=== PATIENT | male | born 1950 | race Caucasian/White ===

== ENCOUNTER 2019-06-26 23:16 | Emergency (ER) | payer MEDICARE, OTHER ==
[~2019-06-26] VITALS: Ht 175.2 cm; Wt 89.5 kg
--- NOTE | 2019-06-26 23:54 | ED GI ---
General Chief Complaint: Abdominal/GI Problems Stated Complaint: ABD PAIN Nursing Triage Note: PT. REPORTED HE STARTED HAVING RIGHT FLANK PAIN ON SUNDAY, USED A HEATING PAD WHICH DID NOT HELP MUCH, THEN HE STARTED HAVING LOWER ABD PAIN AND [facility]. PT. STATED HE MAY BE CONSTIPATED BECAUSE HE HAS NOT HAD A BM SINCE SUNDAY, AND HE IS NOT PASSING GAS. PT. REPORTED HE VOMITED 2 TIMES ON SUNDAY. HE REPORTED HE MAY HAVE A BOWEL OBSTRUCTION PER THE [facility]. Sepsis Screen: No Definite Risk Source of Information: Patient History of Present Illness Date Seen by Provider: Jun 26, 2019 Time Seen by Provider: 23:53 Initial Comments 69 yo M presents with diffuse abdominal pain that started on the right side Sunday night. He had 2 episodes of vomiting with the pain on Sunday overnight. He has not had a bowel movement since Sunday. He states that he has not been passing gas. He has diffuse abdominal pain tonight feels like his belly was really tight. [facility] and they told him that he probably had a bowel obstruction and to come to the emergency department. He denies any pain with urination. He denies having pain like this in the past. The pain initially on Sunday night was just in the right flank but now has across his lower abdomen. Allergies and Home Medications Allergies Coded Allergies: No Known Drug Allergies (Unverified , 06/26/19) Home Medications Hydrocodone Bit/Acetaminophen 1 Tab Tab, 1 EACH PO Q6H PRN for PAIN-SEVERE Prescribed by: KALA LOUISE on 06/27/19208 Tamsulosin HCl 0.4 Mg Cap, 0.4 MG PO DAILY Prescribed by: KALA LOUISE on 06/27/19208 Patient Home Medication List Home Medication List Reviewed: Yes Review of Systems Review of Systems Constitutional: No chills, No fever EENTM: No Symptoms Reported Respiratory: No Symptoms Reported Cardiovascular: No Symptoms Reported Gastrointestinal: See HPI Genitourinary: Denies Burning, Denies Frequency Musculoskeletal: no symptoms reported Skin: no symptoms reported Past Njolhdi-Zolrsb-Jvflkr Hx Past Med/Social Hx: Reviewed Nursing Past Med/Soc Hx Patient Social History Recent Foreign Travel: No Contact w/Someone Who Travel: No Recent Infectious Disease Expo: No Recent Hopitalizations: No Physical Abuse: No Sexual Abuse: No Mistreated: No Fear: No Seasonal Allergies Seasonal Allergies: No Past Medical History Surgeries: Yes Coronary Stent, Eye Surgery, Vascular Surgery, Vasectomy Respiratory: No Cardiac: Yes Coronary Artery Disease, High Cholesterol Neurological: Yes TIA Genitourinary: No Gastrointestinal: No Musculoskeletal: No Endocrine: Yes Diabetes, Insulin dep Cataract Loss of Vision: Denies Hearing Impairment: Hard of Hearing Cancer: No Psychosocial: No Integumentary: No Blood Disorders: No Physical Exam Vital Signs Vital Signs - First Documented 06/26/19 23:23 Temp 36.6 Pulse 78 Resp 16 B/P (MAP) 159/83 (108) Pulse Ox 93 O2 Delivery Room Air Capillary Refill : Less Than 3 Seconds Height/Weight/BMI Height: '" Weight: lbs. oz. kg; 29.00 BMI Method: General Appearance: WD/WN, no apparent distress HEENT: PERRL/EOMI, normal ENT inspection, pharynx normal Neck: non-tender, full range of motion, supple, normal inspection Respiratory: chest non-tender, lungs clear, normal breath sounds Cardiovascular: normal peripheral pulses, regular rate, rhythm Gastrointestinal: soft, no pulsatile mass, abnormal bowel sounds (hypoactive), distended; No guarding, No rebound; tenderness (mild diffuse tenderness worse across the lower abdomen) Rectal: deferred Extremities: normal range of motion, non-tender, normal inspection, no pedal edema Back: normal inspection, no CVA tenderness Neurologic/Psychiatric: alert, normal mood/affect, oriented x 3 Skin: normal color, warm/dry Progress/Results/Core Measures Results/Orders Lab Results Laboratory Tests Test 06/27/19 00:17 06/27/19 00:37 Range/Units White Blood Count 12.9 H 4.3-11.0 10^3/uL Red Blood Count 4.85 4.35-5.85 10^6/uL Hemoglobin 14.7 13.3-17.7 G/DL Hematocrit 43 40-54 % Mean Corpuscular Volume 89 80-99 FL Mean Corpuscular Hemoglobin 30 25-34 PG Mean Corpuscular Hemoglobin Concent 34 32-36 G/DL Red Cell Distribution Width 12.5 10.0-14.5 % Platelet Count 183 130-400 10^3/uL Mean Platelet Volume 10.6 H 7.4-10.4 FL Neutrophils (%) (Auto) 65 42-75 % Lymphocytes (%) (Auto) 25 12-44 % Monocytes (%) (Auto) 8 0-12 % Eosinophils (%) (Auto) 1 0-10 % Basophils (%) (Auto) 0 0-10 % Neutrophils # (Auto) 8.3 H 1.8-7.8 X 10^3 Lymphocytes # (Auto) 3.2 1.0-4.0 X 10^3 Monocytes # (Auto) 1.1 H 0.0-1.0 X 10^3 Eosinophils # (Auto) 0.1 0.0-0.3 10^3/uL Basophils # (Auto) 0.1 0.0-0.1 10^3/uL Sodium Level 135 135-145 MMOL/L Potassium Level 3.7 3.6-5.0 MMOL/L Chloride Level 96 L 98-107 MMOL/L Carbon Dioxide Level 27 21-32 MMOL/L Anion Gap 12 5-14 MMOL/L Blood Urea Nitrogen 20 H 7-18 MG/DL Creatinine 1.44 H 0.60-1.30 MG/DL Estimat Glomerular Filtration Rate 49 BUN/Creatinine Ratio 14 Glucose Level 162 H 70-105 MG/DL Calcium Level 9.4 8.5-10.1 MG/DL Corrected Calcium 9.4 8.5-10.1 MG/DL Total Bilirubin 0.7 0.1-1.0 MG/DL Aspartate Amino Transf (AST/SGOT) 16 5-34 U/L Alanine Aminotransferase (ALT/SGPT) 30 0-55 U/L Alkaline Phosphatase 50 40-136 U/L Total Protein 7.5 6.4-8.2 GM/DL Albumin 4.0 3.2-4.5 GM/DL Lipase 25 8-78 U/L Urine Color YELLOW Urine Clarity CLEAR Urine pH 6.5 5-9 Urine Specific [place] 1.015 L 1.016-1.022 Urine Protein TRACE NEGATIVE Urine Glucose (UA) 1+ H NEGATIVE Urine Ketones NEGATIVE NEGATIVE Urine Nitrite NEGATIVE NEGATIVE Urine Bilirubin NEGATIVE NEGATIVE Urine Urobilinogen 1.0 NORMAL MG/DL Urine Leukocyte Esterase NEGATIVE NEGATIVE Urine RBC (Auto) 3+ H NEGATIVE Urine RBC 50-100 H /HPF Urine WBC 5-10 H /HPF Urine Squamous Epithelial Cells 5-10 /HPF Urine Crystals NONE /LPF Urine Bacteria NEGATIVE /HPF Urine Casts NONE /LPF Urine Mucus NEGATIVE /LPF Urine Culture Indicated NO My Orders Orders - KALA LOUISE MD Comprehensive Metabolic Panel (06/27/19 00:10) Lipase (06/27/19 00:10) Ua Culture If Indicated (06/27/19 00:10) Ed Iv/Invasive Line Start (06/27/19 00:10) Cbc With Automated Diff (06/27/19 00:10) Ct Abdomen/Pelvis W (06/27/19 00:10) Ns Iv 1000 Ml (Sodium Chloride 0.9%) (06/27/19 00:10) Ketorolac Injection (Toradol Injection) (06/27/19 00:10) Iohexol Injection (Omnipaque 350 Mg/Ml 1 (06/27/19 00:15) Received Contrast (Hold Metformin- Contr (06/27/19 00:15) Ns (Ivpb) (Sodium Chloride 0.9% Ivpb Bag (06/27/19 00:15) Tamsulosin Capsule (Flomax Capsule) (06/27/19 02:02) Rx-Hydrocodone/Apap 5-325 Mg (Rx-Vicodin (06/27/19 02:15) Medications Given in ED Current Medications Medications Dose Ordered Sig/[place] Route Start Time Stop Time Status Last Admin Dose Admin Acetaminophen/ Hydrocodone Bitart 1 ea Q6H PRN PO 06/27/19 02:15 06/27/19 02:15 1 EA Iohexol 100 ml ONCE ONCE IV 06/27/19 00:15 06/27/19 00:16 DC 06/27/19 01:00 50 ML Sodium Chloride 100 ml ONCE ONCE IV 06/27/19 00:15 06/27/19 00:16 DC 06/27/19 01:00 100 ML Vital Signs/I&O 06/26/19 23:23 Temp 36.6 Pulse 78 Resp 16 B/P (MAP) 159/83 (108) Pulse Ox 93 O2 Delivery Room Air Blood Pressure Mean: 108 Progress Progress Note #1: Progress Note Obtain labs along with CT scan of his abdomen and pelvis to evaluate for possible kidney stone versus bowel obstruction versus other pathology in his abdomen and pelvis to cause his pain. Will give IV fluids for hydration, Toradol for pain. Progress Note #2: Progress Note Labs show his white blood cell count is at the upper limits of normal at 12.9 thousand. He has mild renal insufficiency likely due to some dehydration. He has blood in his urine but no signs of infection. His CT scan finally came back showing that he had a 6 x 3 mm kidney stone in the right distal ureter. He has surrounding inflammation and increased stool and gas throughout the colon. No sign of obstruction or blockage. Counseled on results of tests seen and patient stated that he was feeling better after getting the Toradol shot treatment here in the ED. Encouraged to follow-up with Dr. Cormier with urology. Given the first dose of Flomax as well as a take h ome pack of pain medication. Counseled on treatment for constipation as well. Diagnostic Imaging Diagonstic Imaging: CT Plain Films/CT/US/NM/MRI: abdomen, pelvis Comments Moderate right hydronephrosis and hydroureter with distal ureteral 6 mm x 3.5 mm stone. There is no bowel obstruction. The appendix is normal. There is no diverticulitis. Read by radiologist Dr. Aureliano Wylie M.D. At 1:21 AM and initial results faxed at 1:31 AM Departure Impression Primary Impression: Renal colic Additional Impressions: Ureteral stone with hydronephrosis Right ureteral calculus Constipation Qualified Codes: K59.01 - Slow transit constipation Disposition: HOME, SELF-CARE Condition: Stable Departure-Patient Inst. Decision time for Depature: 02:04 Referrals: NO,LOCAL PHYSICIAN (PCP) Primary Care Physician LAYNE CORMIER MD [facility] Patient Instructions: Constipation, Adult (DC), How to Strain Your Urine, Kidney Stone Diet, Kidney Stones (DC), Renal Colic (DC) Add. Discharge Instructions: Take pain medicine as needed for severe pain. Use the Flomax to help the ureter relax and help the stone pass. Drink plenty of water and stay well hydrated to help with the constipation and the kidney stone. Call Dr. Cormier in the morning to get an appointment and follow up about the kidney stone as you may need Lithotripsy, especially if it is not passing on its own or getting worse. All discharge instructions reviewed with patient and/or family. Voiced understanding. Scripts Hydrocodone Bit/Acetaminophen (Hydrocodone/Acetaminophen 5/325mg Tablet) 1 Tab Tab 1 EACH PO Q6H PRN for PAIN-SEVERE MDD 10 for 3 Days, #12 TAB 0 Refills Prov: KALA LOUISE MD 06/27/19 Tamsulosin HCl (Flomax) 0.4 Mg Cap 0.4 MG PO DAILY for 7 Days, #7 CAP 0 Refills Prov: KALA LOUISE MD 06/27/19 KALA LOUISE MD Jun 26, 2019 23:53
[2019-06-27] MEDS ORDERED: KETOROLAC 30 MG/ML VIAL IVP STA (00:10)
[2019-06-27] MEDS ORDERED: NS IV 1000 ML 1,000 ML IV STA (00:10)
[2019-06-27] MEDS ORDERED: NS 100 ML (IVPB) BAG IV ONE (00:15)
[2019-06-27] MEDS ORDERED: IOHEXOL 350 MG/ML 100 ML (OMNIPAQUE 350) VIAL IV ONE (00:15)
[2019-06-27] MEDS ORDERED: HOLD METFORMIN - RECEIVED CONTRAST 20 ML VIAL IV SCH (00:15)
[2019-06-27 00:26] LABS: HEMOGLOBIN 14.7 G/DL (13.3-17.7); MEAN CORPUSCULAR HEMOGLOBIN 30 PG (25-34); WHITE BLOOD COUNT 12.9 10^3/uL (4.3-11.0)
[2019-06-27 00:27] LABS: BASOPHILS # (AUTO) 0.1 10^3/uL (0.0-0.1); BASOPHILS % (AUTO) 0 % (0-10); EOSINOPHILS # (AUTO) 0.1 10^3/uL (0.0-0.3); EOSINOPHILS % (AUTO) 1 % (0-10); HEMATOCRIT 43 % (40-54); LYMPHOCYTES # (AUTO) 3.2 X 10^3 (1.0-4.0); LYMPHOCYTES % (AUTO) 25 % (12-44); MEAN CORPUSCULAR HGB CONC 34 G/DL (32-36); MEAN CORPUSCULAR VOLUME 89 FL (80-99); MEAN PLATELET VOLUME 10.6 FL (7.4-10.4); MONOCYTES # (AUTO) 1.1 X 10^3 (0.0-1.0); MONOCYTES % (AUTO) 8 % (0-12); NEUTROPHILS # (AUTO) 8.3 X 10^3 (1.8-7.8); NEUTROPHILS % (AUTO) 65 % (42-75); PLATELET COUNT 183 10^3/uL (130-400); RED CELL DISTRIBUTION WIDTH 12.5 % (10.0-14.5)
[2019-06-27 00:48] LABS: BILIRUBIN,URINE NEGATIVE (NEGATIVE); CLARITY,URINE CLEAR; COLOR,URINE YELLOW; GLUCOSE, URINE (UA) 1+ (NEGATIVE); KETONES,URINE NEGATIVE (NEGATIVE); LEUKOCYTE ESTERASE ,URINE NEGATIVE (NEGATIVE); NITRITE,URINE NEGATIVE (NEGATIVE); PH,URINE 6.5 (5-9); PROTEIN,URINE TRACE (NEGATIVE)
[2019-06-27 00:49] LABS: BILIRUBIN,TOTAL 0.7 MG/DL (0.1-1.0); CALCIUM 9.4 MG/DL (8.5-10.1); CREATININE SERUM 1.44 MG/DL (0.60-1.30); POTASSIUM 3.7 MMOL/L (3.6-5.0); TOTAL PROTEIN 7.5 GM/DL (6.4-8.2)
[2019-06-27 00:53] LABS: BACTERIA,URINE NEGATIVE /HPF; RBC,URINE 50-100 /HPF
--- NOTE | 2019-06-27 01:12 | NUR ---
IV FLUIDS STILL HAD NORMAL SALINE IN THE BAG FROM EMS SO RESTARTED THE FLUIDS WITH THAT BAG IT WAS NOT DISCONNECTED.
[2019-06-27] MEDS ORDERED: TAMSULOSIN 0.4 MG (FLOMAX) CAP PO STA (02:02)
[2019-06-27] MEDS ORDERED: ACHD5005 PO (02:09)
[2019-06-27] MEDS ORDERED: TAMS0.4C98 PO (02:09)
[2019-06-27] MEDS ORDERED: RX-HYDROCODONE/APAP 5/325 MG #4 TAB PK PO PRN (02:15)
[2019-06-27 02:19] VITALS: BP 159/83
--- NOTE | 2019-06-27 06:28 | Diagnostic Imaging Report ---
PROCEDURE: CT abdomen and pelvis with contrast. TECHNIQUE: Multiple contiguous axial images were obtained through the abdomen and pelvis after administration of intravenous contrast. Auto Exposure Controls were utilized during the CT exam to meet ALARA standards for radiation dose reduction. INDICATION: Right flank pain There is mild basilar atelectasis and/or scarring. Note is also made of an approximately 0.6 cm subpleural nodule in the left lower lobe. There is low density throughout the liver indicating steatosis. There is no evidence of gallbladder distention or inflammation. No pancreatic, adrenal gland or splenic abnormality is identified. Left kidney has a normal appearance apart from an approximately 1.5 cm cortical cyst in its midportion and an approximately 2.5 cm cyst in its upper pole. There is right mild hydronephrosis and hydroureter to the level of an approximately 0.6 cm calculus in the mid to distal ureter. No bladder stone is identified. There are calcifications in the prostate gland. There is no evidence of appendiceal inflammation. A moderate amount of stool is seen in the ascending colon. There is no evidence of bowel obstruction. No organized fluid collection is seen to indicate an abscess. There is moderate aortoiliac atherosclerotic calcification. IMPRESSION: Mild to moderate right hydronephrosis and ureteric dilatation to the level of an approximately 0.6 cm mid to distal ureteric stone. Note is also made of fatty infiltration. There is an approximately 0.6 cm subpleural nodule left lung base which is of unknown significance. Correlation with clinical factors such as risk for lung cancer would be useful to determine follow-up. CT imaging of the chest may be appropriate. Dictated by: Dictated on workstation # [id number]
== END 2019-06-27 02:23 | disposition home or self-care (01) ==
LOC: ER FS 23:21
DX: N13.2 Hydronephrosis with renal and ureteral calculous obstruction (principal); K59.00 Constipation, unspecified; E11.9 Type 2 diabetes mellitus without complications; I25.10 Atherosclerotic heart disease of native coronary artery without angina pectoris; E78.00 Pure hypercholesterolemia, unspecified; Z95.5 Presence of coronary angioplasty implant and graft; Z86.73 Personal history of transient ischemic attack (TIA), and cerebral infarction without residual deficits
CPT/HCPCS: 36415; 74177; 80053; 81000; 83690; 85025

== ENCOUNTER → 2019-06-30 | Outpatient (CLI) | payer MEDICARE, OTHER ==
[~2019-06-30] MED LIST: ACHD5005 PO; ASPI-586 PO; ATOR80TA76 PO; CIPR-225 PO; CLOP75TA28 PO; GLIM4TAB3 PO; HYDR12.56 PO; MAGNESIUM PO; METF-399 PO; OMEG-141 PO; OMEP-280 PO; SEMA0.25 SQ; SILD50TA48 PO; TMSL.4C PO
== END | disposition home or self-care (01) ==
LOC: PREOP 14:02
PROVIDERS: ATTEND Urology
DX: Z01.818 Encounter for other preprocedural examination (principal)

== ENCOUNTER → 2019-06-30 | Outpatient (CLI) | payer MEDICARE, OTHER ==
[~2019-06-30] MED LIST changes: +GLIM4TAB PO; -GLIM4TAB3 PO; -OMEP-280 PO; +OMEP20CA13 PO; +TAMS0.4C98 PO; -TMSL.4C PO
--- NOTE | 2019-06-30 14:31 | Diagnostic Imaging Report ---
Indication: Right nephrolithiasis KUB 1 6. Bowel gas pattern is normal. There is some calcific atherosclerosis. There are stents in the iliac arteries. There are no pathologic masses or calcifications seen in the genitourinary tract dislocation. IMPRESSION: No acute abnormalities in the abdomen Dictated by: Dictated on workstation # [id number]
== END ==
LOC: RAD 12:38
PROVIDERS: ATTEND Urology
DX: N20.2 Calculus of kidney with calculus of ureter (principal)
CPT/HCPCS: 74018

== ENCOUNTER 2019-07-01 07:27 | Day surgery (SDC) | payer MEDICARE, OTHER ==
[~2019-07-01] VITALS: Ht 175.3 cm; Wt 89.5 kg
[2019-07-01] VITALS (11 sets, daily range): BP systolic 145–197; BP diastolic 62–98
[~2019-07-01 07:27] MED LIST changes: -ASPI-586 PO; -ATOR80TA76 PO; -CIPR-225 PO; -CLOP75TA28 PO; -GLIM4TAB PO; -HYDR12.56 PO; -MAGNESIUM PO; -METF-399 PO; -OMEG-141 PO; -OMEP20CA13 PO; -SEMA0.25 SQ; -SILD50TA48 PO
[2019-07-01] MEDS ORDERED: cefTRIAXone FOR IV USE 1,000 MG in WATER (STERILE) FOR INJECTION 10 ML IV ONE (07:45)
--- NOTE | 2019-07-01 08:04 | Progress Note-Pre Operative ---
Pre-Operative Progress Note H&P Reviewed The H&P was reviewed, patient examined and no changes noted. Date Seen by Provider: Jul 01, 2019 Time Seen by Provider: 08:04 Date H&P Reviewed: Jul 01, 2019 Time H&P Reviewed: 08:04 Pre-Operative Diagnosis: RT URETERAL STONE LAYNE CORMIER MD Jul 01, 2019 08:04
[2019-07-01 08:35] LABS: PROTHROMBIN TIME PATIENT 13.4 SEC (12.2-14.7)
[2019-07-01] MEDS: LACTATED RINGERS 1,000 ML IV PRN ×2 (08:37→11:02)
--- NOTE | 2019-07-01 08:38 | Diagnostic Imaging Report ---
EXAMINATION: Abdominal radiographs, single supine view. DATE: July 01, 2019. CLINICAL INDICATION: 69-year-old male, evaluation for electroshock wave lithotripsy. COMPARISON: KUB of June 30, 2019. CT abdomen and pelvis of June 27, 2019. COMMENTS: The previously noted 6 mm stone in the right ureter on prior CT imaging is difficult to definitely visualize radiographically. There are pelvic calcifications which likely relate to phleboliths. There are no abnormally distended gas-filled segments of bowel. There is graft material noted. IMPRESSION: The previously noted 6 mm right ureteral stone on prior CT imaging is not well seen radiographically. Dictated by: Dictated on workstation # [id number]
[2019-07-01] MEDS ORDERED: OMEP20CA13 PO (08:44)
[2019-07-01] MEDS ORDERED: SEVOFLURANE (ULTANE) 15 ML INHAL SOLN ONE ×6 (08:59→11:59)
[2019-07-01] MEDS ORDERED: MAGNESIUM PO (08:59)
[2019-07-01] MEDS ORDERED: GLIM4TAB PO (08:59)
[2019-07-01] MEDS ORDERED: ONDANSETRON 4 MG/2 ML (SDV) Z0FRAN ONE (08:59)
[2019-07-01] MEDS ORDERED: ASPI-586 PO (08:59)
[2019-07-01] MEDS ORDERED: CLOP75TA28 PO (08:59)
[2019-07-01] MEDS ORDERED: METF-399 PO (08:59)
[2019-07-01] MEDS ORDERED: proPOfol 200 MG/20 ML (DIPRIVAN) VIAL IV ONE (08:59)
[2019-07-01] MEDS ORDERED: LIDOCAINE PF 2% 5 ML (XYLOCAINE) VIAL ONE (08:59)
[2019-07-01] MEDS ORDERED: ATOR80TA76 PO (08:59)
[2019-07-01] MEDS ORDERED: DEXAMETHASONE 10 MG/ML (DECADRON) 1 ML VIAL ONE ×2 (08:59→09:10)
[2019-07-01] MEDS ORDERED: OMEG-141 PO (08:59)
[2019-07-01] MEDS ORDERED: HYDR12.56 PO (08:59)
[2019-07-01] MEDS ORDERED: fentaNYL INJECTION 100 MCG/2 ML AMP ONE (09:00)
[2019-07-01] MEDS ORDERED: SILD50TA48 PO (09:00)
[2019-07-01] MEDS ORDERED: MIDAZOLAM 2 MG/2 ML (VERSED) VIAL ONE (09:00)
[2019-07-01] MEDS ORDERED: SEMA0.25 SQ (09:00)
[2019-07-01] MEDS ORDERED: GLYCOPYRROLATE 0.2 MG/ML (ROBINUL) 2 ML VIAL ONE (10:33)
[2019-07-01] MEDS ORDERED: NEOSTIGMINE 3 MG/3 ML VIAL ONE (10:33)
[2019-07-01] MEDS ORDERED: ROCURONIUM 10 MG/ML 5 ML SYRINGE IV ONE (10:57)
[2019-07-01] MEDS ORDERED: IOPAMIDOL 61% 30 ML (ISOVUE 300) VIAL IV PRN (11:00)
--- NOTE | 2019-07-01 11:27 | Progress Note-Post Operative ---
Post-Operative Progess Note Surgeon (s)/Cook Ice Cream (s) Surgeon LAYNE CORMIER MD Cook Ice Cream: NONE Pre-Operative Diagnosis RT URETERAL STONE Post-Operative Diagnosis SAME Procedure & Operative Findings Date of Procedure 07/01/19 Procedure Performed/Findings UD, CYSTO, RT URETEROSCOPY, ATTEMPTED STENT, RT RETROGRADE UROGRAM, AND RT ESWL Anesthesia Type GENERAL Estimated Blood Loss Estimated blood loss (mL): NEGLIGIBLE Specimens/Packing Specimens Removed NONE Packing: NONE LAYNE CORMIER MD Jul 01, 2019 11:27
--- NOTE | 2019-07-01 11:31 | Discharge Inst-Urology ---
Discharge Inst-Urology Reconcile Patient Problems Problems Reviewed?: Yes Final Diagnosis RT URETERAL STONE AND URETHRAL STRICTURE Patient Instructions/Follow Up Plan/Assessment/Instructions Please make appointment to been seen in office in 3 weeks. KUB prior to it Send home with Ybarra and leg bag with instructions To office 9am to DC Ybarra KUB on way home Post ESWL instructions Increase oral fluids for 48 hours and then as needed. Diet and Activity as tolerated. If questions or concerns contact your physician Or seek help at emergency department. LAYNE CORMIER MD Jul 01, 2019 11:31
--- NOTE | 2019-07-01 11:35 | Discharge Inst-Urology ---
Discharge Inst-Urology Reconcile Patient Problems Problems Reviewed?: Yes Final Diagnosis RT URETERAL STONE Patient Instructions/Follow Up Plan/Assessment/Instructions Please make appointment to been seen in office next Sunday, NOT 3 weeks. KUB prior to it. Stay off ASA and Plavix till then KUB on way home Post ESWL instructions Discharge with Ybarra and leg bag with instructions Come to office This 9am to DC Ybarra Increase oral fluids for 48 hours and then as needed. Diet and Activity as tolerated. If questions or concerns contact your physician Or seek help at emergency department. LAYNE CORMIER MD Jul 01, 2019 11:35
[2019-07-01] MEDS ORDERED: KETOROLAC 30 MG/ML VIAL ONE (11:59)
[2019-07-01] MEDS ORDERED: FUROSEMIDE 40 MG/4 ML INJ (LASIX) ONE (11:59)
[2019-07-01] MEDS ORDERED: morphine INJ 10 MG/ML 1ML (SYR OR VIAL) IVP ONE (12:00)
[2019-07-01] MEDS ORDERED: ONDANSETRON 4 MG/2 ML (SDV) Z0FRAN IVP PRN (12:00)
--- NOTE | 2019-07-01 12:45 | NUR ---
TO AMB SURG FROM PAR PER CART. ALERT, REPORTS PENILE PRESSURE FROM CATHETER. SCANT AMOUNT OF BLEEDING AT MEATUS. URINE CLEAR, LIGHT YELLOW. CATHETER TUBING TAPED TO RIGHT THIGH. REPLACED TAPE WITH CATHETER STATLOCK. BAG TO DD ON BOTTOM BED RAIL. PO FLUIDS PROVIDED.
--- NOTE | 2019-07-01 13:08 | Anesthesia-General Post-Op ---
General Patient Condition Mental Status/LOC: Same as Preop Cardiovascular: Satisfactory Nausea/Vomiting: Absent Respiratory: Satisfactory Pain: Controlled Complications: Absent Post Op Complications Complications None Follow Up Care/Instructions Patient Instructions None needed. Anesthesia/Patient Condition Patient Condition Patient is doing well, no complaints, stable vital signs, no apparent adverse anesthesia problems. No complications reported per nursing. TYLER ISAAC CRNA Jul 01, 2019 13:08
[2019-07-01] MEDS ORDERED: CIPR-225 PO (13:19)
[2019-07-01] MEDS ORDERED: ACHD5005 PO (13:19)
[2019-07-01] MEDS ORDERED: TAMS0.4C98 PO (13:19)
--- NOTE | 2019-07-01 13:30 | NUR ---
TAKING PO FLUIDS WITHOUT PROBLEM. NO CHANGE IN SITE, URINE OR PAIN ASSESSMENTS.
--- NOTE | 2019-07-01 14:19 | Diagnostic Imaging Report ---
PATIENT HISTORY: POST OP. TECHNIQUE: Frontal view of the abdomen. COMPARISON: 07/01/2019 FINDINGS: Moderate stool seen in the ascending colon. There is mild gas seen in the distal colon and rectum. No dilated loops of small bowel are seen. There is no large collection of free air. Iliac stents are noted. No unexpected radiopaque foreign bodies are seen. There is calcific atherosclerosis. The previously seen right ureteral stone is not well seen radiographically. IMPRESSION: 1. The previously seen right ureteral stone is not well seen radiographically. No acute abnormality is seen. Dictated by: Dictated on workstation # [id number]
--- NOTE | 2019-07-01 14:45 | NUR ---
NO CHANGE IN ASSESSMENTS. MARADIAGA CATH/LEG BAG TEACHING TO PT AND , SUPPLIES SENT WITH PT FOR CATHETER CARE AND URINE STRAINING. REQUESTING DISMISSAL.
--- NOTE | 2019-07-01 18:28 | OPERATIVE REPORT ---
DATE OF SERVICE: 07/01/2019 PREOPERATIVE DIAGNOSIS: Right ureteral stone. POSTOPERATIVE DIAGNOSES: Right ureteral stone and submeatal stricture. OPERATIONS PERFORMED: Urethral dilatation, cystoscopy, right ureteroscopy, attempted stent, right retrograde urogram and right ESWL. SURGEON: Joce Cormier MD ANESTHESIA: General. COMPLICATIONS: None. DESCRIPTION OF PROCEDURE: Under satisfactory general anesthesia, the patient in lithotomy position on the cystoscopy table, the genital area were prepped and draped in the usual sterile fashion. Attempt to pass a 23-English met severe resistance at the site of the meatus secondary to a severe stricture. I was able to dilate it to #28 to accommodate a 23-English cystoscope easily. The rest of the urethra showed no stricture. The prostate was not significantly enlarged. There was no bladder neck obstruction. Bladder was entered, revealed mild trabeculations. Ureteric orifices were normal in shape, size and configuration with clear efflux, sluggish on the right side. Using the foroblique lens, I tried to dilate the right ureteral orifice, intramural portion met resistance. I injected contrast and indeed there was a quite curve to the end of the ureter as it coursed into the bladder. I tried to manipulate the stent through that, I could not. I passed a 6.9-English semi-rigid ureteroscope after removing the cystoscope and again I could not manipulate it beyond that curve to get to the stone, I could see the stone as a filling defect in injecting retrograde urogram, so we localized it well. I removed the ureteroscope and inserted an 18-English Ybarra catheter because of the dilatation and the length of the surgery, probably leave that catheter in for 48 hours. We moved the patient to the ESWL table in supine. The stone as seen by the filling defect was localized. Shocks were delivered at kV of 8 for a total of 2500 shocks. We could not visualize the filling defect anymore and the contrast was flowing easily and could not be visualized in the ureter anymore. The patient received 40 mg of Lasix and 30 mg of Toradol IV at the end of the procedure. He tolerated the procedure and anesthesia well and was sent to recovery room in stable condition. Job ID: [id number] DocumentID: [id number] Dictated Date: 07/01/2019 11:46:05 Molding Machine Operator Date: 07/01/2019 18:27:56 Dictated By: JOCE CORMIER MD
== END 2019-07-01 14:57 | disposition home or self-care (01) ==
LOC: SDC 07:27
PROVIDERS: ATTEND Urology
DX: N20.1 Calculus of ureter (principal); N35.911 Unspecified urethral stricture, male, meatal; I25.10 Atherosclerotic heart disease of native coronary artery without angina pectoris; I73.9 Peripheral vascular disease, unspecified; I10 Essential (primary) hypertension; K21.9 Gastro-esophageal reflux disease without esophagitis; E11.9 Type 2 diabetes mellitus without complications; Z79.82 Long term (current) use of aspirin; Z79.899 Other long term (current) drug therapy; Z95.5 Presence of coronary angioplasty implant and graft; Z86.73 Personal history of transient ischemic attack (TIA), and cerebral infarction without residual deficits; Z98.52 Vasectomy status
CPT/HCPCS: 36415; 74018; 82962; 85610; 85730; 87081

== ENCOUNTER → 2019-07-07 | Outpatient (CLI) | payer MEDICARE, OTHER ==
[~2019-07-07] MED LIST changes: +ASPI-586 PO; +ATOR80TA76 PO; +CIPR-225 PO; +CLOP75TA28 PO; +GLIM4TAB PO; +HYDR12.56 PO; +MAGNESIUM PO; +METF-399 PO; +OMEG-141 PO; +OMEP20CA13 PO; +SEMA0.25 SQ; +SILD50TA48 PO
--- NOTE | 2019-07-07 16:13 | Diagnostic Imaging Report ---
INDICATION: Stone follow up status post ESWL. COMPARISON: 06/30/2019 FINDINGS: Single supine radiographic view of the abdomen was obtained. Calcific atherosclerosis of the pelvis is again noted. No unexpected extraosseous calcifications or radiopaque foreign bodies are seen on today's exam. Distal right ureteral calculus is not identified. No unexpected radiopaque foreign bodies are seen. Small bowel loops are nondistended. Moderate air and stool is again noted scattered throughout the colon. IMPRESSION: 1. No unexpected calcifications are seen on today's exam. If there is persistent concern for retained urinary collecting system calculus, CT is advised. Dictated by: Dictated on workstation # [id number]
== END ==
LOC: RAD 12:19
PROVIDERS: ATTEND Urology
DX: N20.1 Calculus of ureter (principal); Z98.890 Other specified postprocedural states
CPT/HCPCS: 74018

== ENCOUNTER → 2020-04-29 | Outpatient (CLI) | payer MEDICARE, OTHER ==
[~2020-04-29] MED LIST changes: -GLIM4TAB PO; +GLIM4TAB5 PO; -OMEP20CA13 PO; +OMEP20CA18 PO; -TAMS0.4C98 PO; +TMSL.4C PO
--- NOTE | 2020-04-29 10:42 | Diagnostic Imaging Report ---
PROCEDURE: US carotid duplex, bilateral. TECHNIQUE: Multiple real-time grayscale images were obtained over the carotid arteries in various projections, bilaterally. Additional spectral analysis and color Doppler duplex images were also obtained. INDICATION: Peripheral vascular disease There is moderate narrowing of the proximal right internal carotid artery with velocity ratios suggesting stenosis between 50 and 60%. Parameters based on the consensus panel Marcelino-Scale and Doppler ultrasound criteria published July 2003, Radiology, Volume 229. DOPPLER (peak systolic velocity M/S Right Left approximately 60%. Both carotid bifurcations is not having significant change of velocities or waveforms. Both vertebral arteries are patent with antegrade flow. IMPRESSION: There is atherosclerotic change of the carotid bifurcations. There is approximate 60% stenosis of the proximal right internal carotid artery. CCA 0.80 1.07 ICA Proximal 2.10 0.93 ICA Mid 1.25 1.07 ICA Distal 0.99 1.10 RATIO 2.62 1.03 ECA 0.95 0.97 VERT 0.39 0.56 Dictated by: Dictated on workstation # [id number]
--- NOTE | 2020-04-29 11:05 | Diagnostic Imaging Report ---
PROCEDURE: MR imaging of the brain without contrast. TECHNIQUE: Multiplanar, multisequence MR imaging of the brain was performed without contrast. INDICATION: Dizziness and disequilibrium. FINDINGS: Ventricles and sulci are within normal limits for size. There is a small focus of increased T2 signal to the right of midline in the saritha. This may represent area of chronic ischemia or gliosis from other etiology. There is no restricted diffusion seen to indicate an acute infarct. There is no abnormal mass effect or shift of midline structures. Expected flow voids at the level of [place] are present. There is no abnormal mass effect or shift of midline structures. There is mural thickening within maxillary sinuses and ethmoid air cells, bilaterally. Inner ear structures are unremarkable. Mastoid air cells appear to be clear. IMPRESSION: Minimal abnormal signal within the right saritha may be due to chronic ischemia. Otherwise, no acute abnormality is identified. Dictated by: Dictated on workstation # [id number]
== END ==
LOC: RAD 08:57
PROVIDERS: ATTEND Nurse Practitioner
DX: I65.23 Occlusion and stenosis of bilateral carotid arteries (principal); E87.8 Other disorders of electrolyte and fluid balance, not elsewhere classified; I73.9 Peripheral vascular disease, unspecified
CPT/HCPCS: 70551; 93880

== ENCOUNTER 2020-12-04 14:24 | Emergency (ER) | payer MEDICARE, OTHER ==
[~2020-12-04] VITALS: Ht 175 cm; Wt 84.0 kg
[2020-12-04] MEDS ORDERED: NS IV 1000 ML 1,000 ML ONE (14:51)
[2020-12-04] MEDS ORDERED: RT-ALBUTEROL INHALER HFA (VENTOLIN HFA) 18 GM IH ONE (14:52)
[2020-12-04] MEDS ORDERED: NS IV 1000 ML 1,000 ML IV STA (14:58)
[2020-12-04] MEDS ORDERED: RT-ALBUTEROL INHALER HFA (VENTOLIN HFA) 18 GM IH STA (14:58)
--- NOTE | 2020-12-04 15:07 | ED General ---
General Chief Complaint: Cough/Cold/Flu Symptoms Stated Complaint: COVID + Nursing Triage Note: PT OUT OF CAR W STAFF, PT HAS TESTED COVID+ ON 12/03. PT HAS BEEN SICK SINCE 11/26. PT STATES O2 SAT 85% LAST PM, PT DENIES FEVERS, DENIES DIARRHEA. PT STATES HAS CHEST PRESSURE IN CENTER OF CHEST, COUGH AND SOA Nursing Sepsis Screen: No Definite Risk Source of Information: Patient Exam Limitations: No Limitations History of Present Illness Date Seen by Provider: Dec 04, 2020 Time Seen by Provider: 14:43 Initial Comments Here with report of being Covid positive with test from yesterday. Has been sick over the last week since the and noticed increasing shortness of air with decreasing O2 sat last night. No recent fevers but has had chest pressure with cough that is sometimes tightness and sometimes chest pain. Does have history of cardiac disease as well as diabetes and is on Plavix every other day and aspirin every other day. Denies nausea or vomiting but reports increasingly weak and tired. Timing/Duration: 1 Week Severity: Moderate Associated Systoms: Chest Pain, Cough; No Nausea/Vomiting; Shortness of Air, Weakness Allergies and Home Medications Allergies Coded Allergies: No Known Drug Allergies (Unverified , 06/26/19) Home Medications Atorvastatin Calcium 80 Mg Tablet, 80 MG PO DAILY, (Reported) TAKES 1/2 TAB DAILY FOR 40 MG DOSE Ciprofloxacin HCl 500 Mg Tablet, 500 MG PO BID Prescribed by: CLAUDIO LOBO on 07/01/19 1319 Glimepiride 4 Mg Tablet, 4 MG PO DAILY, (Reported) Hydrochlorothiazide 12.5 Mg Tablet, 12.5 MG PO DAILY, (Reported) Hydrocodone Bit/Acetaminophen 1 Tab Tab, 1-2 TAB PO Q4H PRN for PAIN-SEVERE Prescribed by: CLAUDIO LOBO on 07/01/19 1319 Metformin HCl 1,000 Mg Tablet, 1,000 MG PO BID, (Reported) [place]-3/Dha/Epa/Fish Oil 1 Each Capsule, 1 EACH PO DAILY, (Reported) Omeprazole 20 Mg Capsule.dr, 20 MG PO DAILY, (Reported) Semaglutide 0.25 Mg/0.2 Ml Pen.injctr, 0.25 MG SQ WEEK, (Reported) Sildenafil Citrate 50 Mg Tablet, 50 MG PO UD, (Reported) Tamsulosin HCl 0.4 Mg Cap, 0.4 MG PO DAILY Prescribed by: CLAUDIO LOBO on 07/01/19 1319 [Magnesium] Unknown Strength , Unknown Dose PO DAILY, (Reported) Patient Home Medication List Home Medication List Reviewed: Yes Review of Systems Review of Systems Constitutional: see HPI; No chills, No fever; malaise, weakness EENTM: nose congestion, throat pain Respiratory: cough, short of breath Cardiovascular: chest pain; No edema Gastrointestinal: No abdominal pain, No nausea, No vomiting Genitourinary: no symptoms reported Musculoskeletal: No muscle pain; muscle weakness Skin: no symptoms reported Psychiatric/Neurological: See HPI All Other Systems Reviewed Negative Unless Noted: Yes Past Nhpvfmv-Vjvckb-Znnwth Hx Past Med/Social Hx: Reviewed Nursing Past Med/Soc Hx Patient Social History Alcohol Use: Denies Use Smoking Status: Former Smoker Former Smoker, Quit: Sep 10, 1998 Recent Infectious Disease Expo: No Recent Hopitalizations: No Immunizations Up To Date Date of Pneumonia Vaccine: May 11, 2017 Seasonal Allergies Seasonal Allergies: No Past Medical History Surgeries: Yes (FACIAL SKIN CA REMOVED, RIGHT CAROTID ENDARTERECTOMY ) Coronary Stent, Eye Surgery, Vascular Surgery, Vasectomy Respiratory: No Cardiac: Yes (CARDIAC STENT 2003) Coronary Artery Disease, High Cholesterol, Peripheral Vascular Neurological: Yes (LAST TIA 2003) TIA Genitourinary: No (ED) Gastrointestinal: No Musculoskeletal: No Endocrine: Yes Diabetes, Non-Insulin dep HEENT: Yes Cataract Loss of Vision: Denies Hearing Impairment: Hard of Hearing Cancer: No Skin Did You Recieve Any Treatments: Yes What Type of Treatment Did You: Surgical Intervention Psychosocial: No Integumentary: Yes (FACIAL SKIN CA REMOVED RIGHT UPPER FOREHEAD) Blood Disorders: No Family Medical History Reviewed Nursing Family Hx No Pertinent Family Hx Physical Exam-Suspected Sepsis Physical Exam Vital Signs Vital Signs - First Documented 12/04/20 14:30 Temp 37.0 Pulse 85 Resp 24 B/P (MAP) 146/80 (102) Pulse Ox 94 O2 Delivery Room Air Capillary Refill : Less Than 3 Seconds Blood Pressure Mean: 102 Height, Weight, BMI Height: '" Weight: lbs. oz. kg; 27.00 BMI Method: General Appearance: No Apparent Distress, WD/WN HEENT: PERRL/EOMI, Pharynx Normal Neck: Non Tender, Supple Respiratory: No Accessory Muscle Use, No Respiratory Distress, Crackles (Bibasilar) Cardiovascular: Regular Rate, Rhythm, No Murmur Gastrointestinal: Non Tender, Soft Back: Normal Inspection, No CVA Tenderness, No Vertebral Tenderness Extremity: Normal Range of Motion, Non Tender Neurologic/Psychiatric: Alert, Oriented x3 Skin: normal color, warm/dry Focused Exam Lactate Level 12/04/20 15:09: Lactic Acid Level 1.30 Lactic Acid Level Laboratory Tests Test 12/04/20 15:09 Lactic Acid Level 1.30 MMOL/L (0.50-2.00) Progress/Results/Core Measures Suspected Sepsis Recent Fever Within 48 Hours: No Infection Criteria Present: Documented Infection New/Unexplained Altered Menta: No Sepsis Screen: No Definite Risk SIRS Temperature: Pulse: 85 Respiratory Rate: 24 Laboratory Tests 12/04/20 15:00: White Blood Count 5.4 Blood Pressure 146 /80 Mean: 102 12/04/20 15:09: Lactic Acid Level 1.30 Laboratory Tests 12/04/20 15:00: Creatinine 0.84, INR Comment 1.0, Platelet Count 128L, Total Bilirubin 0.4 Results/Orders Lab Results Laboratory Tests Test 12/04/20 15:00 12/04/20 15:09 Range/Units White Blood Count 5.4 4.3-11.0 10^3/uL Red Blood Count 4.63 4.30-5.52 10^6/uL Hemoglobin 13.9 13.3-17.7 g/dL Hematocrit 41 40-54 % Mean Corpuscular Volume 88 80-99 fL Mean Corpuscular Hemoglobin 30 25-34 pg Mean Corpuscular Hemoglobin Concent 34 32-36 g/dL Red Cell Distribution Width 12.6 10.0-14.5 % Platelet Count 128 L 130-400 10^3/uL Mean Platelet Volume 10.5 9.0-12.2 fL Immature Granulocyte % (Auto) 0 % Neutrophils (%) (Auto) 61 42-75 % Lymphocytes (%) (Auto) 28 12-44 % Monocytes (%) (Auto) 10 0-12 % Eosinophils (%) (Auto) 0 0-10 % Basophils (%) (Auto) 0 0-10 % Neutrophils # (Auto) 3.3 1.8-7.8 X 10^3 Lymphocytes # (Auto) 1.5 1.0-4.0 X 10^3 Monocytes # (Auto) 0.5 0.0-1.0 X 10^3 Eosinophils # (Auto) 0.0 0.0-0.3 10^3/uL Basophils # (Auto) 0.0 0.0-0.1 10^3/uL Immature Granulocyte # (Auto) 0.0 0.0-0.1 10^3/uL Prothrombin Time 13.1 12.2-14.7 SEC INR Comment 1.0 0.8-1.4 Activated Partial Thromboplast Time 29 24-35 SEC D-Dimer 0.66 H 0.00-0.49 UG/ML Sodium Level 136 135-145 MMOL/L Potassium Level 4.5 3.6-5.0 MMOL/L Chloride Level 102 98-107 MMOL/L Carbon Dioxide Level 21 21-32 MMOL/L Anion Gap 13 5-14 MMOL/L Blood Urea Nitrogen 14 7-18 MG/DL Creatinine 0.84 0.60-1.30 MG/DL Estimat Glomerular Filtration Rate > 60 BUN/Creatinine Ratio 17 Glucose Level 154 H 70-105 MG/DL Calcium Level 8.7 8.5-10.1 MG/DL Corrected Calcium 8.9 8.5-10.1 MG/DL Total Bilirubin 0.4 0.1-1.0 MG/DL Aspartate Amino Transf (AST/SGOT) 23 5-34 U/L Alanine Aminotransferase (ALT/SGPT) 27 0-55 U/L Alkaline Phosphatase 48 40-136 U/L Troponin I < 0.028 <0.028 NG/ML C-Reactive Protein High Sensitivity 3.22 H 0.00-0.50 MG/DL Total Protein 6.9 6.4-8.2 GM/DL Albumin 3.8 3.2-4.5 GM/DL Procalcitonin 0.03 <0.10 NG/ML Lactic Acid Level 1.30 0.50-2.00 MMOL/L My Orders Orders - REGIS POSEY MD Ns Iv 1000 Ml (Sodium Chloride 0.9%) (12/04/20 14:51) Albuterol Inhaler (Ventolin Hfa) (12/04/20 14:52) Cbc With Automated Diff (12/04/20 14:58) Comprehensive Metabolic Panel (12/04/20 14:58) Blood Culture (12/04/20 14:58) Sputum Culture (12/04/20 14:58) Urinalysis (12/04/20 14:58) Urine Culture (12/04/20 14:58) Protime With Inr (12/04/20 14:58) Partial Thromboplastin Time (12/04/20 14:58) Chest 1 View, Ap/Pa Only (12/04/20 14:58) Ed Iv/Invasive Line Start (12/04/20 14:58) Vital Signs Adult Sepsis Patie Q15M (12/04/20 14:58) O2 (12/04/20 14:58) Remove Rings In Anticipation O (12/04/20 14:58) Lactic Acid Analyzer (12/04/20 14:58) Ekg Tracing (12/04/20 14:58) Hs C Reactive Protein (12/04/20 14:58) Fibrin Degradation Products (12/04/20 14:58) Procalcitonin (Pct) (12/04/20 14:58) Troponin I (12/04/20 14:58) Ns Iv 1000 Ml (Sodium Chloride 0.9%) (12/04/20 14:58) Albuterol Inhaler (Ventolin Hfa) (12/04/20 14:58) Vital Signs/I&O 12/04/20 14:30 Temp 37.0 Pulse 85 Resp 24 B/P (MAP) 146/80 (102) Pulse Ox 94 O2 Delivery Room Air Capillary Refill : Less Than 3 Seconds Blood Pressure Mean: 102 Progress Note : Progress Note Seen and evaluated. IV, labs, UA, chest x-ray, blood cultures and lactic acid ordered. O2 sat mid 90s on room air currently. Patient states that he is still short of breath. We will check EKG and troponin as well as D-dimer. Albuterol MDI via spacer given. Normal saline 1 L bolus. Monitor patient. Patient is at day 8 or 9 currently. 1651: Patient's chest x-ray is okay. He is actually doing better after albuterol. Patient is still in standard for bamlinivimab therapy. This is currently not available here. Patient is going to be discharged home. I did discuss the case with Dr. Dodge and she is approved the therapy for [facility]. We did call and make contact with [facility] and they have an opening at 1030 tomorrow morning. He would still be inside standards at that point to receive the infusion. I did discuss the risk and benefits with the patient and he verbalized understanding and agreement and will take the therapy. I did discuss this with his as well. She will make sure that he is there tomorrow. Order sheet sent with the patient. I did also instruct the to get tested and follow-up as well as she could potentially qualify. Discharged home with return precautions. Patient verbalized understanding of instructions and agreement with plan. ECG Initial ECG Impression Date: Dec 04, 2020 Initial ECG Impression Time: 15:16 Initial ECG Rate: 81 Initial ECG Rhythm: Normal Sinus Comment EnteredSinus rhythm with incomplete right bundle branch block and left anterior fascicular block. Left axis deviation. No evidence of ST elevation GA. No previous available for comparison. Read by me. Diagnostic Imaging Diagonstic Imaging: Xray Plain Films/CT/US/NM/MRI: chest Comments [facility], [place] NAME: CONNIE [facility]BORNE [facility] REC#: [id number] PT STATUS: REG ER : 1950 PHYSICIAN: REGIS POSEY MD ADMIT DATE: 12/04/20/ER Signed Date of Exam:12/04/20 CHEST 1 VIEW, AP/PA ONLY INDICATION: Sepsis and shortness of air. FINDINGS: Frontal view of the chest demonstrates the lungs to be clear. The heart, mediastinum, pulmonary vascularity and visualized bony thorax are normal. IMPRESSION: Normal chest. Dictated by: Dictated on workstation # [id number] Dict: 12/04/20 1539 Trans: 12/04/20 1550 [facility] [id number] Interpreted by: CHRIS NAIDU MD Electronically signed by: CHRIS NAIDU MD 12/04/20 1550 Departure Impression Primary Impression: COVID-19 virus infection Disposition: 01 HOME, SELF-CARE Condition: Stable Departure-Patient Inst. Decision time for Depature: 16:54 Referrals: NO,LOCAL PHYSICIAN (PCP/Family) Primary Care Physician Patient Instructions: Coronavirus Disease 2019 (COVID-19) ED Add. Discharge Instructions: All discharge instructions reviewed with patient and/or family. Voiced under standing. Use albuterol inhaler 2 puffs every 4-6 hours as needed for shortness of air. Drink plenty of fluids. You may take Tylenol/acetaminophen 1000 mg every 6-8 hours as needed for fever or pain. It is very important that you follow-up at [facility] tomorrow morning at 10:30 AM for the monoclonal antibody infusion therapy to prevent severe disease of COVID-19. Take the order set that was given with you to the hospital when you check into the emergency room. Return for worse pain, fever, vomiting, weakness, breathing problems or other concerns as needed. Monitor your oxygen saturations and return if they are per sistently below 90% after resting for a few minutes. REGIS POSEY MD Dec 04, 2020 15:07
[2020-12-04 15:18] LABS: BASOPHILS % (AUTO) 0 % (0-10); EOSINOPHILS % (AUTO) 0 % (0-10); HEMATOCRIT 41 % (40-54); HEMOGLOBIN 13.9 g/dL (13.3-17.7); LYMPHOCYTES # (AUTO) 1.5 X 10^3 (1.0-4.0); LYMPHOCYTES % (AUTO) 28 % (12-44); MEAN CORPUSCULAR HEMOGLOBIN 30 pg (25-34); MEAN CORPUSCULAR HGB CONC 34 g/dL (32-36); MEAN CORPUSCULAR VOLUME 88 fL (80-99); MEAN PLATELET VOLUME 10.5 fL (9.0-12.2); MONOCYTES # (AUTO) 0.5 X 10^3 (0.0-1.0); MONOCYTES % (AUTO) 10 % (0-12); NEUTROPHILS # (AUTO) 3.3 X 10^3 (1.8-7.8); NEUTROPHILS % (AUTO) 61 % (42-75); PLATELET COUNT 128 10^3/uL (130-400); WHITE BLOOD COUNT 5.4 10^3/uL (4.3-11.0)
[2020-12-04 15:30] LABS: ALBUMIN 3.8 GM/DL (3.2-4.5); CHLORIDE 102 MMOL/L (98-107); POTASSIUM 4.5 MMOL/L (3.6-5.0); SODIUM 136 MMOL/L (135-145)
[2020-12-04 15:31] LABS: CALCIUM 8.7 MG/DL (8.5-10.1)
[2020-12-04 15:32] LABS: GLUCOSE 154 MG/DL (70-105); TOTAL PROTEIN 6.9 GM/DL (6.4-8.2)
[2020-12-04 15:34] LABS: BILIRUBIN,TOTAL 0.4 MG/DL (0.1-1.0); CARBON DIOXIDE 21 MMOL/L (21-32); FIBRIN DEGRADATION PRODUCTS 0.66 UG/ML (0.00-0.49); PROTHROMBIN TIME PATIENT 13.1 SEC (12.2-14.7)
[2020-12-04 15:36] LABS: ALKALINE PHOSPHATASE 48 U/L (40-136); CREATININE SERUM 0.84 MG/DL (0.60-1.30); GFR ESTIMATED > 60
[2020-12-04 15:37] LABS: BUN/CREATININE RATIO 17
[2020-12-04 15:39] LABS: ALANINE AMINOTRANSFERASE 27 U/L (0-55)
--- NOTE | 2020-12-04 15:42 | Diagnostic Imaging Report ---
INDICATION: Sepsis and shortness of air. FINDINGS: Frontal view of the chest demonstrates the lungs to be clear. The heart, mediastinum, pulmonary vascularity and visualized bony thorax are normal. IMPRESSION: Normal chest. Dictated by: Dictated on workstation # [id number]
[2020-12-04 17:11] VITALS: BP 147/73
== END 2020-12-04 17:13 | disposition home or self-care (01) ==
LOC: EDUNIT# 14:24 → ER 14:26
DX: U07.1 COVID-19 (principal); I10 Essential (primary) hypertension; E78.00 Pure hypercholesterolemia, unspecified; E11.9 Type 2 diabetes mellitus without complications; Z85.828 Personal history of other malignant neoplasm of skin; Z95.5 Presence of coronary angioplasty implant and graft; Z86.73 Personal history of transient ischemic attack (TIA), and cerebral infarction without residual deficits; Z87.891 Personal history of nicotine dependence; Z79.84 Long term (current) use of oral hypoglycemic drugs
CPT/HCPCS: 36415; 71045; 80053; 83605; 84145; 84484; 85025; 85379; 85610; 85730; 86141; 87040

== ENCOUNTER 2022-05-17 20:34 | Outpatient (CLI) | payer OTHER | END 2022-05-18 06:44 | disposition home or self-care (01) | LOC: SLEEP 20:34 | PROVIDERS: ATTEND Nurse Practitioner | DX: G47.9 Sleep disorder, unspecified (principal); I10 Essential (primary) hypertension | CPT/HCPCS: 95810 ==

== ENCOUNTER → 2022-07-13 | Outpatient (CLI) | payer OTHER ==
--- NOTE | 2022-07-13 09:45 | Diagnostic Imaging Report ---
PROCEDURE: US carotid duplex, bilateral. TECHNIQUE: Multiple real-time grayscale images were obtained over the carotid arteries in various projections, bilaterally. Additional spectral analysis and color Doppler duplex images were also obtained. INDICATION: Carotid stenosis COMPARISON: 04/29/2020 FINDINGS: [id number] plaque is identified within the bilateral carotid arterial systems. Peak systolic velocities within the right common carotid artery within normal limits. However, peak systolic velocity within the right internal carotid artery proximally is elevated at 220 cm/s. This is associated with a right internal carotid artery to common cardiac artery ratio of 2.2. The peak systolic velocity within the right external carotid artery is within normal limits. Peak systolic velocities within and throughout the left common carotid artery are mildly elevated, measuring up to 152 cm/s. Additionally, the peak systolic velocities within the cxy-ke-[id number] left internal carotid artery are elevated at up to 146 cm/s. However, the left internal carotid artery to common carotid ratio is within normal limits. Peak systolic velocity within the left external carotid artery is mildly elevated at 138 cm/s, though this does not double the velocity within the left common carotid artery. Antegrade flow within the bilateral vertebral arteries. IMPRESSION: 60-79% stenosis within the proximal right internal carotid artery. Diffusely increased velocities throughout the left carotid arterial system without focal sonographic stenosis. Additionally, based upon velocities and ratios, no focal hemodynamically significant stenosis. Antegrade flow within the bilateral vertebral arteries. Parameters based on the consensus panel Marcelino-Scale and Doppler ultrasound criteria published July 2003, Radiology, Volume 229. DOPPLER (peak systolic velocity M/S Right Left CCA .99 1.20 ICA Proximal 2.20 1.13 ICA Mid 1.10 1.46 ICA Distal 1.30 1.35 RATIO 2.20 1.21 ECA 1.07 1.38 VERT .72 .58 Dictated by: Dictated on workstation # [id number]
== END ==
LOC: RAD FS 07:37
PROVIDERS: ATTEND Nurse Practitioner
DX: Z01.89 Encounter for other specified special examinations (principal); I65.23 Occlusion and stenosis of bilateral carotid arteries
CPT/HCPCS: 93880

== ENCOUNTER 2022-09-06 09:22 | Emergency (ER) | payer MEDICARE, OTHER ==
[~2022-09-06] VITALS: Ht 175 cm; Wt 86.0 kg
--- NOTE | 2022-09-06 09:49 | ED Respiratory ---
General Chief Complaint: Respiratory Problems Stated Complaint: COUGH | OXY LEVEL LOW Nursing Triage Note: PT AMB TO RM 7 WITH SPOUSE WITH C/O COUGH X1 MONTH AND SENT HERE BY [facility] FOR POSS PE. PT ALSO HAD CXR AT [facility] Source: patient, family History of Present Illness Date Seen by Provider: Sep 06, 2022 Time Seen by Provider: 09:37 Initial Comments Patient is a 72-year-old male history of coronary artery disease who presents to the emergency room by private vehicle from [facility] in [facility] chief complaint persistent cough, shortness of breath over the last month. He was seen at a clinic in [place] within the last month and prescribed a cough medication has not been helping. He went to the clinic this morning and was found to have low oxygen saturations on room air at 88 or 89%. He states he is short of breath with some exertion. He is a remote smoker having quit 30 years ago. He does not use inhalers routinely. He states his cough is dry, he denies hemoptysis. No recent problems with bowel or bladder, no black or bloody stools no vomiting. No fevers or chills. No actual chest pain. He recently had cardiac evaluation in [place] with Dr. Herbert at [facility]. He denies any recent prolonged immobility, surgeries, illnesses that left him immobile, travel. No history of blood clot. He alternates aspirin and Plavix every other day. He did not take his medications this morning. He did have a chest x-ray at [facility] this morning. Current room air saturations 90 to 92%. No increased work of breathing or respiratory distress is noted. The patient has no conversational dyspnea. All other review of systems reviewed and negative except as stated. Timing/Duration: other (1 month) Severity: moderate Modifying Factors: Worse With Activity; Improves With Albuterol Inhaler (improved this morning) Associated Symptoms: chest pain/soreness (with cough), shortness of breath (with exertion) Allergies and Home Medications Allergies Coded Allergies: No Known Drug Allergies (Unverified , 06/26/19) Patient Home Medication List Home Medication List Reviewed: Yes Atorvastatin Calcium (Atorvastatin Calcium) 80 Mg Tablet, 80 MG PO DAILY, (Reported) Entered as Reported by: CLAUDIO LOBO on 07/01/19 0859 Ciprofloxacin HCl (Cipro) 500 Mg Tablet, 500 MG PO BID Prescribed by: CLAUDIO LOBO on 07/01/191318 Glimepiride (Glimepiride) 4 Mg Tablet, 4 MG PO DAILY, (Reported) Entered as Reported by: CLAUDIO LOBO on 07/01/19858 Hydrochlorothiazide (Hydrochlorothiazide) 12.5 Mg Tablet, 12.5 MG PO DAILY, (Reported) Entered as Reported by: CLAUDIO LOBO on 07/01/19858 Hydrocodone Bit/Acetaminophen (Lortab 5 Mg Tablet) 1 Tab Tab, 1-2 TAB PO Q4H PRN for PAIN-SEVERE Prescribed by: CLAUDIO LOBO on 07/01/191318 Metformin HCl (Metformin HCl) 1,000 Mg Tablet, 1,000 MG PO BID, (Reported) Entered as Reported by: CLAUDIO LOBO on 07/01/19858 Montchanin-3/Dha/Epa/Fish Oil (Montchanin 3 500 Softgel) 1 Each Capsule, 1 EACH PO DAILY, (Reported) Entered as Reported by: CLAUDIO LOBO on 07/01/19858 Omeprazole (Omeprazole) 20 Mg Capsule.dr, 20 MG PO DAILY, (Reported) Entered as Reported by: CLAUDIO LOBO on 07/01/19 08 Semaglutide (Ozempic) 0.25 Mg/0.2 Ml Pen.injctr, 0.25 MG SQ WEEK, (Reported) Entered as Reported by: CLAUDIO LOBO on 07/01/19 09 Sildenafil Citrate (Sildenafil Citrate) 50 Mg Tablet, 50 MG PO UD, (Reported) Entered as Reported by: CLAUDIO LOBO on 07/01/19 09 Tamsulosin HCl (Flomax) 0.4 Mg Cap, 0.4 MG PO DAILY Prescribed by: CLAUDIO LOBO on 07/01/191318 [Magnesium] Unknown Strength , Unknown Dose PO DAILY, (Reported) Entered as Reported by: CLAUDIO LOBO on 07/01/19858 Review of Systems Review of Systems Constitutional: see HPI EENTM: no symptoms reported Respiratory: cough, dyspnea on exertion Cardiovascular: chest pain (with cough) Gastrointestinal: no symptoms reported Genitourinary: no symptoms reported Musculoskeletal: no symptoms reported Skin: no symptoms reported All Other Systems Reviewed Negative Unless Noted: Yes Past Dnknird-Leywel-Smhwvt Hx Patient Social History Tobacco Use?: No Smoking Status: Former Smoker Substance use?: No Alcohol Use?: No Pt feels they are or have been: No Immunizations Up To Date Influenza Vaccine Up-to-Date: No; Not Current First/Initial COVID19 Vaccinat: 2020 COVID19 Vaccine Database Programmer Analyst: radha Seasonal Allergies Seasonal Allergies: No Past Medical History Surgery/Hospitalization HX: DM, HTN HLD, NEUROPATHY, STENTS, COROTID STENT, VASECTOMY, CATARACT Surgeries: Yes (FACIAL SKIN CA REMOVED, RIGHT CAROTID ENDARTERECTOMY ) Coronary Stent, Eye Surgery, Vascular Surgery, Vasectomy Respiratory: No Cardiac: Yes (CARDIAC STENT 2003) Coronary Artery Disease, High Cholesterol, Peripheral Vascular Neurological: Yes (LAST TIA 2003) TIA Genitourinary: No (ED) Gastrointestinal: No Musculoskeletal: No Endocrine: Yes Diabetes, Non-Insulin dep HEENT: Yes Cataract Loss of Vision: Denies Hearing Impairment: Hard of Hearing Cancer: No Skin Did You Recieve Any Treatments: Yes What Type of Treatment Did You: Surgical Intervention Psychosocial: No Integumentary: Yes (FACIAL SKIN CA REMOVED RIGHT UPPER FOREHEAD) Blood Disorders: No Family Medical History No Pertinent Family Hx Physical Exam Vital Signs - First Documented 09/06/22 09/06/22 09:29 09:34 Temp 36.7 Pulse 96 Resp 22 B/P (MAP) 188/85 (119) O2 Delivery Room Air Capillary Refill : Height: '" Weight: lbs. oz. kg; 28.00 BMI Method: General Appearance: WD/WN, no apparent distress Eyes: Bilateral Eye Normal Inspection, Bilateral Eye PERRL, Bilateral Eye EOMI Neck: full range of motion, supple, normal inspection Respiratory: chest non-tender, no respiratory distress, no accessory muscle use; No decreased breath sounds, No accessory muscle use; crackles (left base more than right) Cardiovascular: regular rate, rhythm (tachycardia - 100), no murmur Gastrointestinal: normal bowel sounds, non tender, soft Extremities: normal range of motion, non-tender, normal inspection, no pedal edema, no calf tenderness, normal capillary refill, other (negative Cain's sign) Neurologic/Psychiatric: no motor/sensory deficits, alert, normal mood/affect, oriented x 3 Skin: normal color, warm/dry Progress/Results/Core Measures Suspected Sepsis SIRS Temperature: Pulse: 96 Respiratory Rate: 22 Laboratory Tests 09/06/22 09:31: White Blood Count 11.0 Blood Pressure 188 /85 Mean: 119 Laboratory Tests 09/06/22 09:31: Creatinine 1.12, INR Comment 1.0, Platelet Count 138 Results/Orders Lab Results Laboratory Tests Test 09/06/22 09:31 Range/Units White Blood Count 11.0 4.3-11.0 10^3/uL Red Blood Count 5.34 4.30-5.52 10^6/uL Hemoglobin 16.0 13.3-17.7 g/dL Hematocrit 49 40-54 % Mean Corpuscular Volume 91 80-99 fL Mean Corpuscular Hemoglobin 30 25-34 pg Mean Corpuscular Hemoglobin Concent 33 32-36 g/dL Red Cell Distribution Width 13.5 10.0-14.5 % Platelet Count 138 130-400 10^3/uL Mean Platelet Volume 11.1 9.0-12.2 fL Immature Granulocyte % (Auto) 0 % Neutrophils (%) (Auto) 74 42-75 % Lymphocytes (%) (Auto) 20 12-44 % Monocytes (%) (Auto) 6 0-12 % Eosinophils (%) (Auto) 0 0-10 % Basophils (%) (Auto) 0 0-10 % Neutrophils # (Auto) 8.1 H 1.8-7.8 10^3/uL Lymphocytes # (Auto) 2.2 1.0-4.0 10^3/uL Monocytes # (Auto) 0.6 0.0-1.0 10^3/uL Eosinophils # (Auto) 0.0 0.0-0.3 10^3/uL Basophils # (Auto) 0.0 0.0-0.1 10^3/uL Immature Granulocyte # (Auto) 0.0 0.0-0.1 10^3/uL Percent Immature Platelet Fraction 5.2 0.0-7.6 % Prothrombin Time 13.4 12.2-14.7 SEC INR Comment 1.0 0.8-1.4 Activated Partial Thromboplast Time 29 24-35 SEC Sodium Level 137 135-145 MMOL/L Potassium Level 4.1 3.6-5.0 MMOL/L Chloride Level 101 98-107 MMOL/L Carbon Dioxide Level 23 21-32 MMOL/L Anion Gap 13 5-14 MMOL/L Blood Urea Nitrogen 14 7-18 MG/DL Creatinine 1.12 0.60-1.30 MG/DL Estimat Glomerular Filtration Rate 70 BUN/Creatinine Ratio 13 Glucose Level 169 H 70-105 MG/DL Calcium Level 9.7 8.5-10.1 MG/DL Smear Scan YES My Orders Orders - SRI FORRESTER MD Ed Iv/Invasive Line Start (09/06/22 09:49) Protime With Inr (09/06/22 09:49) Partial Thromboplastin Time (09/06/22 09:49) Cbc With Automated Diff (09/06/22 09:49) Basic Metabolic Panel (09/06/22 09:49) Ekg Tracing (09/06/22 09:49) Ct Angio Chest W (09/06/22 09:49) Iohexol Injection (Omnipaque 350 Mg/Ml 1 (09/06/22 10:45) Received Contrast (Hold Metformin- Contr (09/06/22 10:45) Ns (Ivpb) (Sodium Chloride 0.9% Ivpb Bag (09/06/22 10:45) Ns Iv 1000 Ml (Sodium Chloride 0.9%) (09/06/22 11:15) Albuterol/Ipra Inhalation Soln (Duoneb I (09/06/22 11:15) Svn Small Volume Nebulizer (09/06/22 11:02) Medications Given in ED Current Medications Medications Dose Ordered Sig/Marichuy Route Start Time Stop Time Status Last Admin Dose Admin Iohexol 74 ml ONCE ONCE IV 09/06/22 10:45 09/06/22 10:46 DC 09/06/22 10:45 74 ML Sodium Chloride 100 ml ONCE ONCE IV 09/06/22 10:45 09/06/22 10:46 DC 09/06/22 10:45 80 ML Vital Signs/I&O 09/06/22 09/06/22 09:29 09:34 Temp 36.7 Pulse 96 Resp 22 B/P (MAP) 188/85 (119) O2 Delivery Room Air Capillary Refill : Blood Pressure Mean: 119 Progress Note : Time: 11:48 Progress Note Patient noted initially on presentation to have room air sats from 90 to 92% without any increased work of breathing. Basic labs obtained as well as EKG and CT angio to rule out pulmonary embolism. While waiting for his CT the patient's room air sats dropped to 88/89%. He was placed on supplemental oxygen by nasal cannula at 2 L with sats improved to 96/97%. Still no increased work of breathing or respiratory distress noted on exam. Respiratory effort even and unlabored. His labs are reviewed and unremarkable. Chest x-ray was not able to be reviewed from [facility]. CT angio shows no evidence of acute pulmonary embolism, pleural effusions, increased pulmonary vascular congestion. He does have heavy calcification in the coronary arteries as read by the radiologist. Stable pulmonary nodule. Findings and plan of care communicated to the patient and his who is at the bedside. I did recommend since his oxygen levels dropped down to 88% that he likely needs some home oxygen. I talked with [facility] in [place]. We will fax his ER note, demographic sheet and room air saturations to them and they can spanish moss picker home oxygen in [place]. I also recommended to the patient that he start taking his Prilosec every day as he could be having chronic esophageal reflux at night causing small amounts of aspiration potentiating his cough and making him short of breath. His and he are comfortable with the plan of care. He will have close follow-up with his primary care physician as well as his hospital liaison. All questions are sought and answered. ECG Initial ECG Impression Date: Sep 06, 2022 Initial ECG Impression Time: 10:02 Initial ECG Rate: 92 Initial ECG Rhythm: Normal Sinus Comment Sinus rhythm, nonspecific ST-T wave changes in the septal leads, no ST segment elevation or depression is noted, right bundle branch block Diagnostic Imaging Diagonstic Imaging: CT Comments [facility] [place] NAME: CONNIE OSBORNE [facility] REC#: [id number] PT STATUS: REG ER : 1950 PHYSICIAN: SRI FORRESTER MD ADMIT DATE: 09/06/22/ER Draft Date of Exam:09/06/22 CT ANGIO CHEST W PROCEDURE: CT angiography of the chest with contrast. TECHNIQUE: Multiple contiguous axial images were obtained through the chest after uneventful bolus administration of intravenous contrast. 3D reconstructed CTA MIP acquisitions were also performed. Auto Exposure Controls were utilized during the CT exam to meet ALARA standards for radiation dose reduction. INDICATION: Dyspnea on exertion, cough. No priors for direct comparison. Correlated with overlapped levels obtained at the time of an abdominal CT 06/27/2019. Pulmonary arterial branches patent and well opacified. No filling defect. No PE. Thoracic aorta patent and nonaneurysmal and nonacute. There is coronary artery atherosclerotic vascular calcifications. There is no pleural or pericardial effusion. Tiny 5 mm subpleural nodule left lower lobe stable chronic and benign. No new or suspicious lung mass. There is no thoracic lymphadenopathy. There is no pneumothorax. No consolidating pneumonia or edema. There is a small hiatal hernia chronic. The visualized upper abdomen demonstrates no acute appearing abnormality. IMPRESSION: Negative for PE or acute aortic pathology. Patient has substantial heavy coronary artery atherosclerotic vascular calcifications throughout. Stable chronic benign subpleural granuloma left lower lobe. No findings of thoracic neoplasm. Dictated on workstation # [id number] Dict: 09/06/22 1047 Trans: 09/06/22 1053 [facility] [id number] Interpreted by: TREY HERBERT Electronically signed by: Departure Impression Primary Impression: Hypoxia Additional Impressions: Persistent cough for 3 weeks or longer GERD (gastroesophageal reflux disease) Qualified Codes: K21.9 - Gastro-esophageal reflux disease without esophagitis CAD in koi artery Disposition: 01 HOME, SELF-CARE Condition: Improved Departure-Patient Inst. Decision time for Depature: 11:53 Referrals: NO,LOCAL PHYSICIAN (PCP/Family) Primary Care Physician Patient Instructions: Cough, Adult ED Add. Discharge Instructions: You need to start taking your Prilosec every day. This may help prevent aspiration at night and improve your cough. Use the supplemental oxygen at 2 L per nasal cannula when your oxygen saturations are less then 91%. [facility] in [place] will have that order before you leave the emergency department here today. Please call and follow-up with your primary care physician this week. Your CT scan of the chest did show "heavy atherosclerotic cardiac disease." You can have a copy of the CT scan sent to your hospital liaison if needed. Please return to the emergency department for any new, concerning or emergent complaints. SRI FORRESTER MD Sep 06, 2022 09:49
[2022-09-06 09:54] LABS: EOSINOPHILS % (AUTO) 0 % (0-10); PLATELET COUNT 138 10^3/uL (130-400)
[2022-09-06 09:56] LABS: BASOPHILS % (AUTO) 0 % (0-10); HEMATOCRIT 49 % (40-54); LYMPHOCYTES # (AUTO) 2.2 10^3/uL (1.0-4.0); LYMPHOCYTES % (AUTO) 20 % (12-44); MEAN CORPUSCULAR HEMOGLOBIN 30 pg (25-34); MEAN CORPUSCULAR HGB CONC 33 g/dL (32-36); MEAN CORPUSCULAR VOLUME 91 fL (80-99); MEAN PLATELET VOLUME 11.1 fL (9.0-12.2); MONOCYTES # (AUTO) 0.6 10^3/uL (0.0-1.0); MONOCYTES % (AUTO) 6 % (0-12); NEUTROPHILS # (AUTO) 8.1 10^3/uL (1.8-7.8); NEUTROPHILS % (AUTO) 74 % (42-75)
[2022-09-06 09:57] LABS: SMEAR SCAN COMMENT YES
[2022-09-06 10:12] LABS: PROTHROMBIN TIME PATIENT 13.4 SEC (12.2-14.7)
[2022-09-06 10:14] LABS: POTASSIUM 4.1 MMOL/L (3.6-5.0)
[2022-09-06 10:15] LABS: CALCIUM 9.7 MG/DL (8.5-10.1)
[2022-09-06 10:19] LABS: CREATININE SERUM 1.12 MG/DL (0.60-1.30)
[2022-09-06] MEDS ORDERED: NS 100 ML (IVPB) BAG IV ONE (10:45)
[2022-09-06] MEDS ORDERED: HOLD METFORMIN - RECEIVED CONTRAST 20 ML VIAL IV SCH (10:45)
[2022-09-06] MEDS ORDERED: IOHEXOL 350 MG/ML 100 ML (OMNIPAQUE 350) VIAL IV ONE (10:45)
--- NOTE | 2022-09-06 10:54 | Diagnostic Imaging Report ---
PROCEDURE: CT angiography of the chest with contrast. TECHNIQUE: Multiple contiguous axial images were obtained through the chest after uneventful bolus administration of intravenous contrast. 3D reconstructed CTA MIP acquisitions were also performed. Auto Exposure Controls were utilized during the CT exam to meet ALARA standards for radiation dose reduction. INDICATION: Dyspnea on exertion, cough. No priors for direct comparison. Correlated with overlapped levels obtained at the time of an abdominal CT 06/27/2019. Pulmonary arterial branches patent and well opacified. No filling defect. No PE. Thoracic aorta patent and nonaneurysmal and nonacute. There is coronary artery atherosclerotic vascular calcifications. There is no pleural or pericardial effusion. Tiny 5 mm subpleural nodule left lower lobe stable chronic and benign. No new or suspicious lung mass. There is no thoracic lymphadenopathy. There is no pneumothorax. No consolidating pneumonia or edema. There is a small hiatal hernia chronic. The visualized upper abdomen demonstrates no acute appearing abnormality. IMPRESSION: Negative for PE or acute aortic pathology. Patient has substantial heavy coronary artery atherosclerotic vascular calcifications throughout. Stable chronic benign subpleural granuloma left lower lobe. No findings of thoracic neoplasm. Dictated by: Dictated on workstation # [id number]
[2022-09-06] MEDS ORDERED: RT-ALBUTEROL/IPRATROPIUM 3 ML (DUONEB) VIAL INH ONE (11:15)
[2022-09-06] MEDS ORDERED: NS IV 1000 ML 1,000 ML IV SCH (11:15)
[2022-09-06 12:45] VITALS: BP 151/72
== END 2022-09-06 12:46 | disposition home or self-care (01) ==
LOC: EDUNIT# 09:22 → ER 09:25
DX: R05.3 Chronic cough (principal); R09.02 Hypoxemia; K21.9 Gastro-esophageal reflux disease without esophagitis; I25.10 Atherosclerotic heart disease of native coronary artery without angina pectoris; Z79.01 Long term (current) use of anticoagulants; Z79.82 Long term (current) use of aspirin; Z87.891 Personal history of nicotine dependence; Z28.311 Partially vaccinated for COVID-19
CPT/HCPCS: 36415; 71275; 80048; 85025; 85610; 85730; 93005; 94640